=== PATIENT | female | born 1965 | race Caucasian/White ===

== ENCOUNTER → 2024-01-05 16:40 | Outpatient (REF) | payer BC, SELFPAY | LOC: HWWDC 16:40 | PROVIDERS: ATTENDING PHYSICIAN Obstetrics & Gynecology; FAMILY PHYSICIAN Physician Assistant Medical | DX: Z12.31 Encounter for screening mammogram for malignant neoplasm of breast (principal) | CPT/HCPCS: 77063; 77067 ==

== ENCOUNTER → 2025-01-10 15:41 | Outpatient (REF) | payer BC, SELFPAY | LOC: HWWDC 15:41 | PROVIDERS: ATTENDING PHYSICIAN Obstetrics & Gynecology; FAMILY PHYSICIAN Physician Assistant Medical | DX: Z12.31 Encounter for screening mammogram for malignant neoplasm of breast (principal) | CPT/HCPCS: 77063; 77067 ==